=== PATIENT | male | born 1975 | race Two or more races ===

== ENCOUNTER 2022-05-04 05:44 | Day surgery (SDC) | payer OTHER ==
[2022-05-01 10:15] VITALS: BMI 28.2
[2022-05-04] MEDS ORDERED: Midazolam HCl 2 mg/2 ml Vial ONE ×2 (06:10→07:00)
[2022-05-04] MEDS ORDERED: fentaNYL PF 100 MCG/2 ML SYRINGE ONE (06:10)
[2022-05-04] MEDS ORDERED: HYDROmorphone 0.5 MG/0.5 ML SYRINGE ONE ×4 (06:11→11:04)
[2022-05-04] MEDS ORDERED: Vancomycin 1 GM VIAL ONE (06:25)
[2022-05-04] MEDS ORDERED: CEFAZOLIN 2 GM VIAL ONE (07:07)
[2022-05-04] MEDS ORDERED: Sodium Chloride 0.9% 100 ML ONE (07:07)
[2022-05-04 07:16] LABS: #Eosinphils 0.2 thou/uL (0.0-0.7); #Lymphocytes 2.7 thou/uL (1.20-3.40); #Monocytes 0.5 thou/uL (0.11-0.59); #Neutrophils 2.8 thou/uL (1.40-6.50); %Basophils 0.9 % (0.0-1.0); %Eosinophils 3.4 % (0.0-10.0); %Lymphocytes 43.4 % (21.0-51.0); %Monocytes 7.7 % (0.0-10.0); %Neutrophils 44.7 % (42.0-75.0); Hemoglobin 12.7 g/dL (14.0-18.0); Mean Corpuscular HGB CONC 31.8 g/dL (32.0-36.0); Mean Corpuscular Hemoglobin 27.6 pg (27.0-31.0); Mean Corpuscular Volume 86.7 fl (78.0-98.0); Mean Platelet Volume 7.6 fL (7.4-10.4); Platelet Count 307 10x3/uL (130-400); RBC Distribution Width 13.4 % (11.5-14.5); Red Blood Cell (RBC) Count 4.62 mill/uL (4.70-6.10); White Blood Cell (WBC) Count 6.2 10x3/uL (4.8-10.8)
[2022-05-04 07:17] LABS: #Basophils 0.1 thou/uL (0.0-0.2)
[2022-05-04] MEDS ORDERED: Dexamethasone 20 MG/5 ML VIAL ONE (07:26)
[2022-05-04] MEDS ORDERED: NEOSTIGMINE 3 MG/3 ML SYR 3 MG/3 ML SYRINGE ONE (07:26)
[2022-05-04] MEDS ORDERED: Rocuronium Bromide 10 MG/ML (10ML VIAL) ONE (07:26)
[2022-05-04] MEDS ORDERED: PROPOFOL 200 MG/20 ML VIAL ONE (07:26)
[2022-05-04] MEDS ORDERED: Ondansetron PF 4 MG/2 ML Vial ONE (07:26)
[2022-05-04] MEDS ORDERED: Phenylephrine 10 MG/ML VIAL ONE (07:26)
[2022-05-04 07:27] LABS: Anion Gap 11 mmol/L (10-20); BUN (Urea Nitrogen) 12 mg/dL (8.9-20.6); Calc. Creatinine Clearance 151 mL/min (70-130); Calcium 9.8 mg/dL (7.8-10.44); Carbon Dioxide 25 mmol/L (22-29); Chloride 110 mmol/L (98-107); Estimated GFR 109; Glucose 99 mg/dL (70-105); Potassium 4.3 mmol/L (3.5-5.1); Sodium 142 mmol/L (136-145)
[2022-05-04] MEDS ORDERED: Promethazine HCl 25 MG/ML VIAL ONE (10:36)
== END 2022-05-04 13:35 | disposition home or self-care (01) ==
LOC: SDC 05:44
PROVIDERS: ATTEND Neurological Surgery
PROC: 0SG3071 Fusion of Lumbosacral Joint with Autologous Tissue Substitute, Posterior Approach, Posterior Column, Open Approach (ICD-10-PCS; principal; 2022-05-04)
DX: M51.9 Unspecified thoracic, thoracolumbar and lumbosacral intervertebral disc disorder (principal); M54.16 Radiculopathy, lumbar region; Z79.899 Other long term (current) drug therapy; Z88.2 Allergy status to sulfonamides; Z88.8 Allergy status to other drugs, medicaments and biological substances
CPT/HCPCS: 80048; 85025; 93005; 93010; C1713; C1768; C1776; J1100; J1170; J2250; J2370; J2405; J2550; J2704; J3370; J3490; J7643

== ENCOUNTER 2022-05-19 08:58 | Outpatient (CLI) | payer OTHER | END 2022-05-19 08:59 | disposition home or self-care (01) | LOC: TBSIIMAG 08:58 | PROVIDERS: ATTEND Neurological Surgery | DX: M47.27 Other spondylosis with radiculopathy, lumbosacral region (principal); Z98.890 Other specified postprocedural states | CPT/HCPCS: 72100 ==